=== PATIENT | male | born 1955 | race Caucasian/White ===

== ENCOUNTER 2021-11-20 20:16 | Observation (INO) | payer OTHER ==
[2021-11-20 20:34] VITALS: TEMP 98.1; BMI 28.3
[2021-11-20] MEDS ORDERED: ASPIRIN 81 MG CHEWABLE TABLETS PO ONE (21:02)
[2021-11-20] MEDS ORDERED: ASPIRIN 81 MG CHEWABLE TABLETS ONE (21:23)
[2021-11-20 21:52] LABS: BASO % 0.9 % (0-2.0); EOS % 1.1 % (0-4.5); HEMATOCRIT 37.4 % (35.4-49); HEMOGLOBIN 12.2 GM/dL (11.7-16.9); LYMPH % 14.3 % (8-40); MCH 29.9 pg (25.7-33.7); MCHC 32.7 g/dl (32.0-35.9); MEAN CELL VOLUME 91.4 fl (80-96); MEAN PLT VOLUME 7.9 fl (7.5-11.1); MONO % 9.3 % (3.8-10.2); NEUT % 74.4 % (42.8-82.8); PLATELET COUNT 215 10^3/uL (134-434); RBC 4.09 M/mm3 (4.00-5.60); RDW 15.5 % (11.9-15.9); WHITE BLOOD COUNT 5.7 K/mm3 (4.0-10.0)
[2021-11-20 21:59] LABS: INR 1.57 (0.83-1.09); PROTHROMBIN TIME (PATIENT) 18.1 SEC (9.7-13.0)
[2021-11-20 22:01] LABS: ACTIVATED PTT 26.1 SECONDS (25.2-36.5)
[2021-11-20 22:13] LABS: CALCIUM 9.2 mg/dL (8.5-10.1)
[2021-11-20 22:14] LABS: ALBUMIN 3.6 g/dl (3.4-5.0); BLOOD UREA NITROGEN 41.6 mg/dL (7-18); MAGNESIUM 2.3 mg/dL (1.8-2.4)
[2021-11-20 22:17] LABS: CREATININE 2.7 mg/dL (0.55-1.3)
[2021-11-20 22:18] LABS: BILIRUBIN,TOTAL 0.3 mg/dL (0.2-1)
[2021-11-20 22:19] LABS: TOT PROT 7.2 g/dl (6.4-8.2)
[2021-11-21 07:13] LABS: BASO % 0.7 % (0-2.0); EOS % 2.4 % (0-4.5); HEMATOCRIT 35.2 % (35.4-49); HEMOGLOBIN 11.8 GM/dL (11.7-16.9); LYMPH % 26.6 % (8-40); MCH 30.2 pg (25.7-33.7); MCHC 33.5 g/dl (32.0-35.9); MEAN CELL VOLUME 90.1 fl (80-96); MONO % 9.8 % (3.8-10.2); NEUT % 60.5 % (42.8-82.8); PLATELET COUNT 205 10^3/uL (134-434); RBC 3.91 M/mm3 (4.00-5.60); RDW 15.3 % (11.9-15.9); WHITE BLOOD COUNT 5.6 K/mm3 (4.0-10.0)
[2021-11-21 07:20] LABS: BLOOD UREA NITROGEN 36.6 mg/dL (7-18); CALCIUM 8.8 mg/dL (8.5-10.1)
[2021-11-21 07:21] LABS: ALBUMIN 3.2 g/dl (3.4-5.0)
[2021-11-21 07:23] LABS: CREATININE 2.7 mg/dL (0.55-1.3)
[2021-11-21 07:25] LABS: BILIRUBIN,TOTAL 0.4 mg/dL (0.2-1); TOT PROT 6.5 g/dl (6.4-8.2)
[2021-11-21] MEDS ORDERED: metoPROLOL SUCCINATE 25 MG TAB.SR.24H (FP) PO ONE (09:47)
[2021-11-21] MEDS ORDERED: ASPIRIN 81 MG CHEWABLE TABLETS ONE (09:47)
[2021-11-21] MEDS ORDERED: TICAGRELOR 90 MG TABLET PO ONE (09:47)
[2021-11-21] MEDS ORDERED: ASPIRIN 81 MG CHEWABLE TABLETS PO SCH (10:00)
[2021-11-21] MEDS ORDERED: TICAGRELOR 90 MG TABLET PO SCH (10:00)
[2021-11-21] MEDS ORDERED: FENOFIBRIC ACID 135 MG CAP PO SCH (10:00)
[2021-11-21] MEDS ORDERED: metoPROLOL SUCCINATE 25 MG TAB.SR.24H (FP) PO SCH (10:00)
[2021-11-21 10:52] VITALS: RESP 18
[2021-11-21 15:51] VITALS: BP 126/79; PULSE 71
[2021-11-21] MEDS ORDERED: ATORVASTATIN CA 80 MG TABLET (FP) PO SCH (22:00)
== END 2021-11-21 15:59 | disposition home or self-care (01) ==
LOC: JER 20:16 → JERBED 21:36
PROVIDERS: ADMIT Internal Medicine; ATTEND Internal Medicine
DX: I25.10 Atherosclerotic heart disease of native coronary artery without angina pectoris (principal); E11.9 Type 2 diabetes mellitus without complications; I11.9 Hypertensive heart disease without heart failure; E11.22 Type 2 diabetes mellitus with diabetic chronic kidney disease; N18.9 Chronic kidney disease, unspecified; I10 Essential (primary) hypertension; R11.10 Vomiting, unspecified
CPT/HCPCS: 36415; 71045-TC-FY; 80053; 82550; 82962; 83735; 84443; 84484; 85025; 85610; 85730; 93005; 93010; 93306-TC; 99285-25; C9803-CS; G0378; U0003; U0005